=== PATIENT | male | born 1980 | race Caucasian/White ===

== ENCOUNTER 2018-12-27 21:11 | Emergency (ER) | payer BC ==
[~2018-12-27] VITALS: Ht 172.7 cm; Wt 90.7 kg
[2018-12-27] MEDS ORDERED: DICLOFENAC SODI75 MG PO (21:26)
[2018-12-27 21:46] LABS: ABSOLUTE NEUTROPHILS 6.6 thou/uL (1.4-8.2); BASOPHILS 1.1 % (0.0-2.0); EOSINOPHILS 1.1 % (0.0-3.0); HEMATOCRIT 42.9 % (42.0-52.0); HEMOGLOBIN 14.6 gm/dL (14.0-18.0); LYMPHOCYTES 24.2 % (24.0-44.0); MCH 27.4 pg (26.0-34.0); MCHC 34.1 g/dL (28.0-37.0); MCV 80.2 fL (80.0-100.0); PLATELET COUNT 251 thou/uL (150-400); POLYS 68.6 % (36.0-66.0); RBC 5.35 mil/uL (4.50-6.00); RDW 13.9 % (10.5-14.5); WBC 9.6 thou/uL (4.0-11.0)
[2018-12-27 21:48] LABS: URINE BILIRUBIN NEGATIVE (Negative); URINE BLOOD NEGATIVE (Negative); URINE CLARITY CLEAR; URINE COLOR YELLOW; URINE GLUCOSE-RANDOM* NEGATIVE (Negative); URINE KETONES NEGATIVE (Negative); URINE LEUKOCYTES-REFLEX NEGATIVE (Negative); URINE NITRITE-REFLEX NEGATIVE (Negative); URINE PROTEIN (DIPSTICK) NEGATIVE (Negative); URINE SPECIFIC GRAVITY 1.025 (1.005-1.035); URINE UROBILINOGEN 0.2 E.U./dl (0.2-1.0)
[2018-12-27 21:55] LABS: CALCIUM 8.2 mg/dL (8.5-10.1); CREATININE 0.9 mg/dL (0.7-1.3); POTASSIUM 3.1 mmol/L (3.5-5.1)
[2018-12-27 21:57] LABS: AMP/METHAMP Negative (Negative); BARBITURATES POSITIVE (Negative); BENZODIAZEPINES Negative (Negative); COCAINE Negative (Negative); METHADONE Negative (Negative); OPIATES Negative (Negative); PCP Negative (Negative)
[2018-12-27 22:01] LABS: ALBUMIN 4.2 g/dL (3.4-5.0); TOTAL BILIRUBIN 0.2 mg/dL (<0.1-1.0); TOTAL PROTEIN 7.5 g/dL (6.4-8.2)
[2018-12-28 01:05] VITALS: BP 83/41
--- NOTE | 2018-12-29 07:41 | EKG ---
[place] [address] [facility] [place] [address] ELECTROCARDIOGRAM REPORT Name: ANSON MORA Room #: DEP MAYRA Castillo#: [id number] ������������������ Admission: 12/27/18 ������������������ Attend Phys: Discharge: 12/28/18 ������������������ Date of : 76 Report #: [id number] ����������������������������������������������������������������� [id number] THIS REPORT FOR: //name// [facility] ED Test Date: 2018-12-27 Test Time: 21:20:19 Pat Name: ANSON MORA Department: Room: Gender: [employer]: : 1980 Requested By: Orestes Hay Order Number: [id number] MD: Hernando Ta Measurements Intervals [place] Rate: 61 P: 20 VT: 172 QRS: 0 QRSD: 132 T: 23 QT: 443 QTc: 447 Interpretive Statements Sinus rhythm Right bundle branch block No previous ECG available for comparison Electronically Signed On 12-29-2018 7:41:28 CDT by Hernando Ta [email or web address] ��������������������������������������������� <ELECTRONICALLY SIGNED> ���������������������������������������� By: Hernando Ta MD, [facility] ��������������������������������������������� 12/29/18 0741 2120 19 Hernando Ta MD, FACC /EPI
== END 2018-12-28 01:20 | disposition home or self-care (01) ==
LOC: ER 21:11
PROVIDERS: Emergency Medicine
DX: T42.8X1A Poisoning by antiparkinsonism drugs and other central muscle-tone depressants, accidental (unintentional), initial encounter (principal); G43.909 Migraine, unspecified, not intractable, without status migrainosus; Z88.0 Allergy status to penicillin; Y92.89 Other specified places as the place of occurrence of the external cause